=== PATIENT | female | born 1975 | race Caucasian/White ===

== ENCOUNTER 2018-10-05 10:45 | Outpatient (CLI) | payer OTHER ==
--- NOTE | 2018-10-05 15:34 | Diagnostic Imaging Report ---
JUSTICE [facility]TER [facility] [address] [facility] [address] Report Submission Date: Oct 05, 2018 1:57:44 PM [employer] ENGINEER Patient Study Name: RAHEEM SHIRLEY Date: Oct 05, 2018 11:47:52 AM [employer] ENGINEER Modality Type: US Gender: F Description: : 77 Institution: [facility] Physician: JUSTICE CARTER Endovaginal pelvic ultrasound History: Pelvic pain. Cyst of the left ovary noted on a prior CT Transverse and longitudinal images were obtained through the pelvis endovaginally. Endovaginally, the uterus appears normal in size and is better visualized. The uterus measures 8.9 x 4.5 x 5.4 cm in greatest dimension. The endometrium is normal in thickness measuring 9 mm. The right ovary measures 3.9 x 3.3 x 3.8 cm in greatest dimension and demonstrates a simple cyst measuring 2.0 x 2.4 x 2.4 cm. There is flow to the right ovary. The left ovary is very poorly visualized measuring approximately 1.5 x 2.5 x 2.8 cm in greatest dimension. No left adnexal abnormalities are evident. No free fluid is noted in the pelvis. Impression: Normal uterus and normal endometrium. 2.4 cm simple cyst of the right ovary. No gross left ovarian abnormalities are noted. The left ovary is limitedly visualized but no cystic abnormalities are evident. Electronically signed on Oct 05, 2018 1:57:44 PM [employer]RO [employer] ENGINEER by: Wen COOK
--- NOTE | 2018-10-05 15:35 | Diagnostic Imaging Report ---
JUSTICE CARTER [facility] [address] [facility] [address] Report Submission Date: Oct 05, 2018 1:49:42 PM MEMBER OF TECHNICAL STAFF Patient Study Name: RAHEEM SHIRLEY Date: Oct 05, 2018 11:39:15 AM [employer]BER OF [employer]CHNICAL STAFF Modality Type: US Gender: F Description: US PELVIS ABD : 77 Institution: [facility] Physician: JUSTICE CARTER Transabdominal pelvic ultrasound History: Pelvic pain. Left ovarian cyst noted on a prior CT Transverse and longitudinal images were obtained through the pelvis transabdominally. The uterus is quite poorly visualized transabdominally. Neither ovary can be visualized transabdominally. Impression: Poor visualization of the uterus transabdominally. The uterus measures approximately 13.9 x 5.0 x 5.4 cm in greatest dimension, mildly enlarged. The ovaries cannot be visualized transabdominally. Electronically signed on Oct 05, 2018 1:49:42 PM MEMBER OF TECHNICAL STAFF by: Wen COOK
== END 2018-10-05 11:00 ==
LOC: RAD 10:45
PROVIDERS: ATTEND Family Medicine
DX: R10.9 Unspecified abdominal pain (principal); N83.202 Unspecified ovarian cyst, left side; N83.201 Unspecified ovarian cyst, right side
CPT/HCPCS: 76830; 76856